=== PATIENT | female | born 1990 | race Caucasian/White ===

== ENCOUNTER 2021-05-07 05:16 | Emergency (ER) | payer MEDICAID ==
[~2021-05-07] VITALS: Ht 160 cm; Wt 54.5 kg
[2021-05-07 05:21] VITALS: BP 108/63
== END 2021-05-07 06:30 | disposition home or self-care (01) ==
LOC: EMS 05:16
DX: R07.89 Other chest pain (principal); F41.9 Anxiety disorder, unspecified
CPT/HCPCS: 93005; 99283